=== PATIENT | female | born 1970 | race Caucasian/White ===

== ENCOUNTER 2018-06-07 21:42 | Emergency (ER) | payer MEDICAID ==
--- NOTE | 2018-06-07 23:17 | EDPHY ---
H & P Stated Complaint: constipation Source: Patient Exam Limitations: No limitations - Personal History Current Tetanus/Diphtheria Vaccine: Yes Current Tetanus Diphtheria and Acellular Pertussis (TDAP): Yes - Medical/Surgical History Hx Asthma: Yes Hx Chronic Respiratory Disease: No Hx Diabetes: Yes Hx Cardiac Disease: No Hx Renal Disease: No Hx Cirrhosis: No Hx Alcoholism: No Hx HIV/AIDS: No Hx Splenectomy or Spleen Trauma: No Other PMH: leukemia, DM2, asthma - Social History Smoking Status: Current every day smoker Time Seen by Provider: 06/07/18 23:03 HPI/ROS: HPI: This is a 47-year-old female who presents with Chief Complaint: "Something coming out of my butt" Location: Buttock Quality: Normal finding Duration: Unknown Signs and Symptoms: No bleeding, no radiation, no numbness, no weakness, no tingling, no incontinence, no decreased range of motion, no swelling, + lower back pain, + right hip, no fever Timing: Unknown Severity: Moderate Context: Patient presents with several complaints this evening. She told the triage nurse that she "had something coming out of her butt." Denies any foreign body insertion/rectal trauma. Patient reports that she has a history of constipation is not had a bowel movement in 2 days. She also complains of chronic lower back pain and chronic right hip pain. Patient is ambulatory without any deficits. She has tried no [id number] medications for the symptoms. Patient reports that she was at the custodial locally when she took the bus to the emergency room for further evaluation. No primary care provider. Denies change in bowel or bladder habits, polyuria, polydipsia, nausea, vomiting, abdominal pain. Modifying Factors: None Comment: ROS: A comprehensive 10 system review of systems is otherwise negative aside from elements mentioned in the history of present illness. MEDICAL/SURGICAL/SOCIAL HISTORY: Medical history: leukemia, DM2, asthma Surgical history: Denies Social history: Transient. Current every day smoker. CONSTITUTIONAL: Well-developed, well-nourished, chronic ill appearing middle- aged white female,, awake and alert, no obvious distress HEENT: Atraumatic and normocephalic. NECK: supple, no midline tenderness, flexion 45 degrees, extension 45 degrees, right and left lateral flexion 45 degrees. No meningismus. Cardiovascular: Normal S1/S2, regular rate, regular rhythm, without murmur rub or gallop. PULMONARY/CHEST: Symmetrical and nontender. no crepitus. Clear to auscultation bilaterally. Good air movement. No accessory muscle usage. ABDOMEN: Soft, nondistended, nontender, no ecchymosis. PELVIC: no pain with rocking; bilateral hips flexion 125 degrees, extension 30 degrees, with no pain internal rotation and no pain external rotation. BACK: No midline tenderness, no paraspinous spasm, deep tendon reflexes 2/2, mild pain with straight leg raise, No foot drop. Achilles reflexes are equal bilaterally. Ambulatory without deficits. RECTAL: Good sphincter tone, light brown stool in vault, mild small nonthrombosed external hemorrhoids, no fissures, no palpable masses EXTREMITIES: 2/2 pulses, strength 5/5, right HIP: Flexion to 125, extension to 115, hyper extension to 15, abduction to 45. Pain with internal rotation and external rotation. Mild tenderness over greater trochanter. DIP/PIP/MCP flexion/extension intact with good light touch sensation. no deformities, no clubbing, no cyanosis or edema. NEUROLOGICAL: no focal neuro deficits. GCS 15. Light touch sensation intact. SKIN: Warm and dry, no erythema. no rash. Good capillary refill. (Landy Brian) Constitutional: Initial Vital Signs Temperature (C) 36.8 C 06/07/18 21:45 Heart Rate 88 06/07/18 21:45 Respiratory Rate 16 06/07/18 21:45 Blood Pressure 97/62 L 06/07/18 21:45 O2 Sat (%) 94 06/07/18 21:45 O2 Delivery Mode Room Air Allergies/Adverse Reactions: Penicillins Allergy (Verified 06/07/18 21:50) Home Medications: Medication Instructions Recorded Hydrocortisone Acetate 25 mg [place] Q6 PRN #7 supp 06/08/18 [Hemorrhoidal Hc 25 mg supp (*)] Medical Decision Making ED Course/Re-evaluation: Vital signs reviewed and stable upon arrival. Fingerstick blood sugar=73 No Neurological deficits to warrant emergent MRI Lumbosacral x-ray my read shows L5-S1 degenerative changes but no acute fracture. Right hip x-ray my read shows no acute fracture, dislocation. Given Tylenol and ibuprofen. Given a prescription for Anusol HC rectal suppositories for non thrombosed mild external hemorrhoids Referral to the [facility]. No signs of neurovascular compromise/tenting of skin/compartment syndrome/ extremities and joints examined above and below area of concern and are neurovascularly intact/cauda equina syndrome. This patient was seen under the supervision of my secondary supervising physician. I evaluated care for this patient independently. Discussed this patient with Dr. Walsh. (Landy Brian) PHYSICIAN DOCUMENTATION: The patient was evaluated and managed by the Physician Associate Accountant. My co- signature indicates that I have reviewed this chart and I agree with the findings and plan of care as documented. I am the secondary supervising physician. (Teresa Walsh) Differential Diagnosis: Differential diagnosis includes but is not limited to lumbar degenerative disc disease, lumbar radiculopathy, lumbar disc herniation, right hip osteoarthritis , right hip bursitis. (Landy Brian) - Data Points Laboratory Results: 06/08/18 00:23 POC Glucose 73 mg/dL mg/dL (70-100) Point of Care Test Results: Chemistry 06/08/18 00:23 POC Glucose 73 mg/dL mg/dL (70-100) Departure - Departure Disposition: Home, Routine, Self-Care Clinical Impression: Right hip pain, External hemorrhoids without complication Low back pain Qualifiers: Chronicity: chronic Back pain laterality: right Sciatica presence: with sciatica Sciatica laterality: sciatica of right side Qualified Code(s): M54.41 - Lumbago with sciatica, right side Condition: Good Instructions: Back Pain (ED) Additional Instructions: Take Tylenol 650 mg every 4 hours and/or Ibuprofen 600 mg every 8 hours with food as needed for pain. Consume a minimum of 8-10 glasses of water or electrolyte fluid replacement drinks that include Gatorade, Powerade, Pedialyte. Take MiraLax [id number] daily as needed for constipation. Use Anusol HC suppositories as needed for hemorrhoid pain. Referrals: [facility],. [Clinic] - As per Instructions Prescriptions: Hydrocortisone Acetate [Hemorrhoidal Hc 25 mg supp (*)] 25 mg [place] Q6 PRN #7 supp PRN Reason: Pain, Hemorrhoid
[2018-06-08] MEDS ORDERED: IBUPROFEN 600 MG TAB PO ONE (00:24)
[2018-06-08] MEDS ORDERED: ACETAMINOPHEN 500 MG TAB PO ONE (00:24)
[2018-06-08 00:36] VITALS: BP 104/76
== END 2018-06-08 00:35 | disposition home or self-care (01) ==
LOC: EDUNIT#
DX: M54.41 Lumbago with sciatica, right side (principal); K64.4 Residual hemorrhoidal skin tags

== ENCOUNTER 2018-06-14 13:45 | Emergency (ER) | payer MEDICAID | END 2018-06-14 15:35 | disposition home or self-care (01) ==